=== PATIENT | female | born 1990 | race Caucasian/White ===

== ENCOUNTER 2023-10-12 20:09 | Inpatient (IN) | payer BC, SELFPAY ==
[2023-10-12 12:57] LABS: Urine Albumin Negative (Neg - Trace); Urine Bilirubin Negative (Negative); Urine Character Clear (Clear); Urine Color Yellow; Urine Glucose Negative (Negative); Urine Ketone Negative (Negative); Urine Leukocyte 1+ (Negative); Urine Nitrite Negative (Negative); Urine Occult Blood Negative (Negative); Urine Urobilinogen Negative (Neg - 1+); Urine pH 6.5 (5.0-9.0)
[2023-10-12 12:59] VITALS: BP 142/91; BMI 41.3
[2023-10-12 13:05] LABS: % Basophils 0.4 % (0-2); % Eosinophils 0.8 % (0-6); % Immature Granulocytes 0.5 % (0-0.5); % Lymphocytes 20.1 % (20.5-51.1); % Monocytes 8.7 % (1.7-9.3); % Neutrophils 69.5 % (42.2-75.2); Absolute Eosinophils 0.1 10^3/uL (0-0.7); Absolute Lymphocytes 1.5 10^3/uL (1.2-3.4); Absolute Monocytes 0.7 10^3/uL (0.1-0.6); Absolute Neutrophils 5.3 10^3/uL (1.4-6.5); Hemoglobin 10.9 g/dL (12.0-16.0); Mean Corpuscular Hgb 26.3 pg (27.0-31.0); Mean Corpuscular Volume 79.7 fL (81.0-99.0); Mean Platelet Volume 10.4 fL (7.4-10.4); Nucleated Red Blood Cells % 0 %; Platelet Count 206 10^3/uL (130-400); Red Blood Cell Count 4.14 10^6/uL (4.20-5.40); Red Cell Dist. Width 14.9 % (11.5-14.5); White Blood Cell Count 7.6 10^3/uL (4.8-10.8)
[2023-10-12 13:22] LABS: Urine Bacteria Moderate (Negative); Urine White Cell 21-25 /HPF (0-5)
[2023-10-12 13:23] LABS: Urine Red Blood Cell 0-2 /HPF (0-2); Urine Squamous Cell >30 /LPF (Few)
[2023-10-12 13:24] LABS: ALT (SGPT) 19 U/L (0-35); AST (SGOT) 26 U/L (14-36); Alkaline Phosphatase 138 U/L (38-126); Blood Urea Nitrogen 6 mg/dl (7-17); Carbon Dioxide 22 mmol/L (22-30); Chloride 110 mmol/L (98-107); Estimated Creatinine Clearance > 125 ml/min; Glucose 70 mg/dl (70-99); Potassium 3.9 mmol/L (3.5-5.1); Sodium 134 mmol/L (135-145); Total Bilirubin 0.5 mg/dl (0.2-1.3); Total Protein 5.6 g/dl (6.3-8.2); eGFR > 60.00
[2023-10-12 13:44] LABS: Urine Protein 6 mg/dl
[2023-10-12 15:26] VITALS: BP 156/93; BMI 41.3
[2023-10-12] MEDS: LR 500 IV (16:18)
[2023-10-12 17:14] LABS: INR 1.02; PT 13.7 Sec (11.4-14.6)
[2023-10-12 17:15] LABS: Fibrinogen 564 MG/DL (199-459)
[2023-10-12 17:16] LABS: APTT 28.6 Sec (23.4-35.0)
[2023-10-12] MEDS: CELESTONE SOLUSPAN 2 MG IM (17:51)
[2023-10-12] MEDS: LR 1000 IV (20:50)
[2023-10-12] MEDS: MAGNESIUM SULFATE 100 IV (20:52)
[2023-10-12] MEDS: MAGNESIUM SULFATE 40 GRAM 1000 IV (21:25)
[2023-10-12] MEDS: CYTOTEC 50 MICROGRAM VAG (21:29)
[2023-10-12 22:08] LABS: Magnesium 1.8 mg/dl (1.6-2.3)
[2023-10-13] MEDS: CYTOTEC 25 MICROGRAM PO ×2 (03:00→09:03)
[2023-10-13] MEDS: LR 1000 IV ×2 (07:55→17:50)
[2023-10-13] MEDS: ZOLOFT 50 MG PO (08:39)
[2023-10-13] MEDS: MORPHINE SULFATE 2 MG IV (12:54)
[2023-10-13] MEDS: PHENERGAN 50.5 MG IV (12:57)
[2023-10-13] MEDS: PITOCIN 30 UNITS/NSS 500 ML IV (13:30)
[2023-10-13] MEDS: CYTOTEC PO (13:34)
[2023-10-13] MEDS: MAGNESIUM SULFATE 40 GRAM 1000 IV (16:28)
[2023-10-13] MEDS: CELESTONE SOLUSPAN 2 MG IM (17:50)
[2023-10-13] MEDS: PENICILLIN 110 UNITS IV (21:19)
[2023-10-13] MEDS: SUBLIMAZE 100 MCG EPIDURAL (21:37)
[2023-10-13] MEDS: FENTANYL/BUPIVACAINE 100 EPIDURAL (21:49)
[2023-10-14] MEDS: MORPHINE SULFATE 2 MG IV (00:49)
[2023-10-14] MEDS: HEMABATE 250 MCG IM (00:50)
[2023-10-14 00:56] LABS: Cord ABG Comment CORD BLOOD
[2023-10-14 00:57] LABS: B.E. Cord ABG -3.5 mMOL/L; HCO3 Cord ABG 24.9 mmol/L; O2 Saturation % Cord ABG 40.7 %; PCO2 Cord ABG 58 mmHg; PO2 Cord ABG 21 mmHg; pH Cord ABG 7.24
[2023-10-14 01:00] LABS: B.E. Cord ABG -5.8 mMOL/L; HCO3 Cord ABG 19.5 mmol/L; O2 Saturation % Cord ABG 81.7 %; PCO2 Cord ABG 37 mmHg; PO2 Cord ABG 41 mmHg; pH Cord ABG 7.33
[2023-10-14] MEDS: PITOCIN 30 UNITS/NSS 500 ML IV (02:29)
[2023-10-14] MEDS: ZOLOFT 50 MG PO (07:54)
[2023-10-14] MEDS: TYLENOL 650 MG PO ×2 (07:54→20:35)
[2023-10-14] MEDS: MOTRIN 600 MG PO ×2 (11:37→20:35)
[2023-10-14] MEDS: MAGNESIUM SULFATE 40 GRAM 1000 IV (11:40)
--- NOTE | 2023-10-14 21:47 | W.IMMPOSTOP ---
Surgical Immed Post Op Note
-
Primary Surgeon: Jerri Card DO
Assisting Surgeon: none
Pre-op Diagnosis: S/P with bilateral sulcus tears and second degree laceration; intolerance to repair due to pain
Post-op Diagnosis: same
Procedure Performed: Exam under IV sedation and repair of perineal laceration and bilateral sulcus tears.
Anesthesia Type: IV analgesia, epidural Dr. Mcclendon
Specimen / Cultures: none
Estimated Blood Loss: <50ml
Complications: none
Operative Findings: bilateral sulcus tears and second degree perineal laceration
Needle and sponge counts correct times 2.
Stable to recovery.
[2023-10-15] MEDS: MOTRIN 600 MG PO ×3 (05:27→17:55)
[2023-10-15] MEDS: TYLENOL 650 MG PO ×3 (05:27→17:55)
[2023-10-15 05:44] LABS: Hematocrit 26.6 % (37.0-47.0); Hemoglobin 8.8 g/dL (12.0-16.0)
[2023-10-15] MEDS: ZOLOFT 50 MG PO (09:20)
[2023-10-15] MEDS: SENOKOT-S 1 TABLET PO (09:20)
[2023-10-15 11:58] LABS: Syphilis/T. pallidum Ab Reflex Negative (Negative)
[2023-10-15] MEDS: PROCARDIA XL (EXTENDED RELEASE) 30 MG PO (12:35)
[2023-10-15] MEDS: FERRLECIT 110 MG IV (14:37)
[2023-10-16] MEDS: TYLENOL 650 MG PO ×2 (00:40→06:03)
[2023-10-16] MEDS: MOTRIN 600 MG PO ×2 (00:40→20:31)
[2023-10-16] MEDS: ZOLOFT 50 MG PO (07:46)
[2023-10-16] MEDS: PROCARDIA XL (EXTENDED RELEASE) 30 MG PO (07:47)
[2023-10-16 10:59] LABS: Hematocrit 29.5 % (37.0-47.0); Hemoglobin 9.8 g/dL (12.0-16.0); Mean Corp Hgb Conc. 33.2 g/dL (33.0-37.0); Mean Corpuscular Hgb 26.4 pg (27.0-31.0); Mean Corpuscular Volume 79.5 fL (81.0-99.0); Mean Platelet Volume 9.8 fL (7.4-10.4); Platelet Count 250 10^3/uL (130-400); Red Blood Cell Count 3.71 10^6/uL (4.20-5.40); Red Cell Dist. Width 14.7 % (11.5-14.5); White Blood Cell Count 9.5 10^3/uL (4.8-10.8)
[2023-10-16] MEDS: MAGNESIUM SULFATE 100 IV (10:59)
[2023-10-16] MEDS: LR 1000 IV (11:01)
[2023-10-16] MEDS: LOVENOX 40 MG SC (11:02)
[2023-10-16] MEDS: MAGNESIUM SULFATE 40 GRAM 1000 IV (11:25)
[2023-10-16 11:34] LABS: ALT (SGPT) 19 U/L (0-35); AST (SGOT) 27 U/L (14-36); Albumin 3.4 g/dl (3.5-5.0); Alkaline Phosphatase 101 U/L (38-126); Blood Urea Nitrogen 7 mg/dl (7-17); Calcium 8.7 mg/dl (8.4-10.2); Carbon Dioxide 27 mmol/L (22-30); Chloride 107 mmol/L (98-107); Estimated Creatinine Clearance > 125 ml/min; Glucose 103 mg/dl (70-99); Potassium 3.2 mmol/L (3.5-5.1); Sodium 137 mmol/L (135-145); Total Bilirubin 0.4 mg/dl (0.2-1.3); eGFR > 60.00
[2023-10-16] MEDS: FERRLECIT IV (16:40)
[2023-10-16 16:55] LABS: Magnesium 3.7 mg/dl (1.6-2.3)
[2023-10-16] MEDS: KCL 40 MEQ PO (17:02)
[2023-10-16 22:46] LABS: Magnesium 4.7 mg/dl (1.6-2.3)
[2023-10-17] MEDS: MAGNESIUM SULFATE 40 GRAM 1000 IV (03:18)
[2023-10-17] MEDS: MOTRIN 600 MG PO ×3 (04:23→17:45)
[2023-10-17 04:42] LABS: Hematocrit 29.2 % (37.0-47.0); Hemoglobin 9.4 g/dL (12.0-16.0); Mean Corp Hgb Conc. 32.2 g/dL (33.0-37.0); Mean Corpuscular Hgb 26.3 pg (27.0-31.0); Mean Corpuscular Volume 81.6 fL (81.0-99.0); Mean Platelet Volume 9.8 fL (7.4-10.4); Platelet Count 262 10^3/uL (130-400); Red Blood Cell Count 3.58 10^6/uL (4.20-5.40); Red Cell Dist. Width 14.7 % (11.5-14.5); White Blood Cell Count 9.7 10^3/uL (4.8-10.8)
[2023-10-17 05:06] LABS: ALT (SGPT) 27 U/L (0-35); AST (SGOT) 37 U/L (14-36); Albumin 3.2 g/dl (3.5-5.0); Alkaline Phosphatase 99 U/L (38-126); Blood Urea Nitrogen 10 mg/dl (7-17); Calcium 7.6 mg/dl (8.4-10.2); Carbon Dioxide 25 mmol/L (22-30); Chloride 106 mmol/L (98-107); Estimated Creatinine Clearance > 125 ml/min; Glucose 97 mg/dl (70-99); Magnesium 4.9 mg/dl (1.6-2.3); Phosphorus 5.7 mg/dl (2.5-4.5); Potassium 3.9 mmol/L (3.5-5.1); Sodium 134 mmol/L (135-145); Total Bilirubin 0.5 mg/dl (0.2-1.3); Total Protein 5.7 g/dl (6.3-8.2); eGFR > 60.00
[2023-10-17] MEDS: LOVENOX 40 MG SC (08:51)
[2023-10-17] MEDS: ZOLOFT 50 MG PO (08:52)
[2023-10-17] MEDS: PROCARDIA XL (EXTENDED RELEASE) 60 MG PO (08:52)
[2023-10-17] MEDS: PROCARDIA XL (EXTENDED RELEASE) PO (10:05)
[2023-10-17] MEDS: LR IV (11:42)
[2023-10-17] MEDS: TYLENOL 650 MG PO ×2 (11:59→17:45)
[2023-10-17] MEDS: SENOKOT-S 1 TABLET PO (11:59)
[2023-10-17] MEDS: FERRLECIT IV (14:14)
[2023-10-17] MEDS: FEOSOL 325 MG PO (14:25)
[2023-10-18] MEDS: TYLENOL 650 MG PO ×2 (00:47→07:38)
[2023-10-18] MEDS: MOTRIN 600 MG PO ×2 (00:47→07:39)
[2023-10-18] MEDS: PROCARDIA XL (EXTENDED RELEASE) 60 MG PO (07:38)
[2023-10-18] MEDS: ZOLOFT 50 MG PO (07:39)
[2023-10-18] MEDS: FEOSOL 325 MG PO (07:39)
[2023-10-18] MEDS: LOVENOX SC (07:43)
== END 2023-10-18 16:14 | disposition home or self-care (01) | DRG 806 ==
LOC: LDRP 20:09
PROVIDERS: Obstetrics & Gynecology; ADMITTING PHYSICIAN Obstetrics & Gynecology
PROC: 3E033VJ Introduction of Other Hormone into Peripheral Vein, Percutaneous Approach (ICD-10-PCS; 2023-10-12)
PROC: 3E0P7VZ Introduction of Hormone into Female Reproductive, Via Natural or Artificial Opening (ICD-10-PCS; 2023-10-12)
PROC: 0KQM0ZZ Repair Perineum Muscle, Open Approach (ICD-10-PCS; 2023-10-13)
PROC: 0U7C7ZZ Dilation of Cervix, Via Natural or Artificial Opening (ICD-10-PCS; 2023-10-13)
PROC: 0UQG7ZZ Repair Vagina, Via Natural or Artificial Opening (ICD-10-PCS; 2023-10-14)
PROC: 10E0XZZ Delivery of Products of Conception, External Approach (ICD-10-PCS; 2023-10-14)
PROC: 6A550ZT Pheresis of Cord Blood Stem Cells, Single (ICD-10-PCS; 2023-10-14)
DX: O14.14 Severe pre-eclampsia complicating childbirth (principal); O41.03X0 Oligohydramnios, third trimester, not applicable or unspecified; Z37.0 Single live birth; Z3A.36 36 weeks gestation of pregnancy; O70.1 Second degree perineal laceration during delivery; O99.214 Obesity complicating childbirth; E66.8 Other obesity; O99.284 Endocrine, nutritional and metabolic diseases complicating childbirth; H53.8 Other visual disturbances; O99.344 Other mental disorders complicating childbirth; O69.1XX0 Labor and delivery complicated by cord around neck, with compression, not applicable or unspecified; F41.9 Anxiety disorder, unspecified; O72.1 Other immediate postpartum hemorrhage; E28.2 Polycystic ovarian syndrome; Z83.3 Family history of diabetes mellitus; Z82.49 Family history of ischemic heart disease and other diseases of the circulatory system; Z86.16 Personal history of COVID-19; Z28.310 Unvaccinated for COVID-19; Z28.39 Other underimmunization status; R51.9 Headache, unspecified; R42 Dizziness and giddiness; O90.81 Anemia of the puerperium; D64.9 Anemia, unspecified; E87.6 Hypokalemia
CPT/HCPCS: 88307; 36415; 76816; 76820; 80053; 81003; 81015; 82570; 82803; 83735; 84100; 84156; 85014; 85018; 85025; 85027; 85384; 85460; 85610; 85730; 86780; J2916